=== PATIENT | female | born 1975 | race Caucasian/White ===

== ENCOUNTER 2020-05-02 10:36 | Emergency (ER) | payer OTHER ==
[2020-05-02 10:40] VITALS: BP 145/90; PULSE 81; TEMP 97.5; BMI 35.3
[2020-05-02 12:20] LABS: BASO % 1.9 % (0-2.0); EOS % 0.5 % (0-4.5); EPI CELLS 30 /uL (0-25.1); HEMATOCRIT 41.9 % (32.4-45.2); HEMOGLOBIN 14.4 GM/dL (10.7-15.3); HYALINE CASTS 1 /uL (0-3.1); LYMPH % 31.7 % (8-40); MCH 34.3 pg (25.7-33.7); MCHC 34.5 g/dl (32.0-36.0); MEAN CELL VOLUME 99.6 fl (80-96); MEAN PLT VOLUME 8.6 fl (7.5-11.1); MONO % 7.3 % (3.8-10.2); NEUT % 58.6 % (42.8-82.8); PLATELET COUNT 311 K/MM3 (134-434); RBC 4.21 M/mm3 (3.60-5.2); RDW 13.6 % (11.6-15.6); URINE APPEARANCE CLEAR; URINE BACTERIA 754 /uL (0-1359); URINE BILIRUBIN NEGATIVE (NEGATIVE); URINE COLOR YELLOW; URINE GLUCOSE (UA) NEGATIVE (NEGATIVE); URINE KETONE NEGATIVE (NEGATIVE); URINE LEUK ESTERASE TRACE (NEGATIVE); URINE NITRITE NEGATIVE (NEGATIVE); URINE PROTEIN NEGATIVE (NEGATIVE); URINE UROBILINOGEN 0.2 mg/dL (0.2-1.0); URINE WBC 28 /uL (0-25.8); WHITE BLOOD COUNT 8.7 K/mm3 (4.0-10.0)
[2020-05-02 12:51] LABS: POTASSIUM 4.1 mmol/L (3.5-5.1)
[2020-05-02 12:54] LABS: CALCIUM 9.2 mg/dL (8.5-10.1)
[2020-05-02 12:56] LABS: ALBUMIN 4.1 g/dl (3.4-5.0); BLOOD UREA NITROGEN 16.2 mg/dL (7-18)
[2020-05-02 12:58] LABS: BILIRUBIN,TOTAL 0.6 mg/dL (0.2-1); CREATININE 0.9 mg/dL (0.55-1.3)
[2020-05-02 13:00] LABS: TOT PROT 8.6 g/dl (6.4-8.2)
[2020-05-02 13:08] LABS: URINE RBC 26 /uL (0-23.9)
== END 2020-05-02 13:16 | disposition home or self-care (01) ==
LOC: JERFT 10:36
DX: B35.6 Tinea cruris (principal); R10.31 Right lower quadrant pain
CPT/HCPCS: 36415; 73523-TC-FY; 80053; 81003; 85025; 87086; 99284-25

== ENCOUNTER 2020-11-01 03:14 | Emergency (ER) | payer OTHER ==
[2020-11-01 03:28] VITALS: BP 136/80; PULSE 77; TEMP 97.8; BMI 39.4
[2020-11-01] MEDS ORDERED: DEXAMETHASONE SOD PHOSPHATE 4 MG/1 ML VIAL IVPUSH ONE (03:54)
[2020-11-01] MEDS ORDERED: ACETAMINOPHEN 325 MG TABLET (FP) PO ONE (03:54)
[2020-11-01] MEDS ORDERED: DEXAMETHASONE SOD PHOSPHATE 10 MG/1 ML VIAL ONE (04:12)
[2020-11-01] MEDS ORDERED: ACETAMINOPHEN 325 MG TABLET (FP) ONE (04:12)
[2020-11-01] MEDS ORDERED: ACETAMINOPHEN INJECTION 100 ML IVPB ONE (04:26)
[2020-11-01 04:33] LABS: BASO % 1.8 % (0-2.0); EOS % 0.7 % (0-4.5); HEMATOCRIT 41.3 % (32.4-45.2); HEMOGLOBIN 14.2 GM/dL (10.7-15.3); LYMPH % 34.7 % (8-40); MCH 33.7 pg (25.7-33.7); MCHC 34.4 g/dl (32.0-36.0); MEAN CELL VOLUME 97.9 fl (80-96); MEAN PLT VOLUME 8.2 fl (7.5-11.1); MONO % 7.7 % (3.8-10.2); NEUT % 55.1 % (42.8-82.8); PLATELET COUNT 343 10^3/uL (134-434); RBC 4.22 M/mm3 (3.60-5.2); RDW 14.3 % (11.6-15.6); WHITE BLOOD COUNT 11.9 K/mm3 (4.0-10.0)
[2020-11-01] MEDS ORDERED: CLINDAMYCIN 600MG PREMIX IVPB 600 MG/50 ML BAG IVPB ONE ×2 (04:33→04:49)
[2020-11-01] MEDS ORDERED: ACETAMINOPHEN 1000 MG/100 ML VIAL (NON FORMULARY) IVPB ONE (04:48)
[2020-11-01 04:53] LABS: BLOOD UREA NITROGEN 12.1 mg/dL (7-18); CALCIUM 9.2 mg/dL (8.5-10.1)
[2020-11-01 04:56] LABS: CREATININE 0.9 mg/dL (0.55-1.3)
[2020-11-01 04:58] LABS: BILIRUBIN,TOTAL 0.4 mg/dL (0.2-1); TOT PROT 8.5 g/dl (6.4-8.2)
== END 2020-11-01 07:26 | disposition home or self-care (01) ==
LOC: JER 03:14
PROC: 3E033GC Introduction of Other Therapeutic Substance into Peripheral Vein, Percutaneous Approach (ICD-10-PCS; principal; 2020-11-01)
DX: R22.0 Localized swelling, mass and lump, head (principal); K02.9 Dental caries, unspecified
CPT/HCPCS: 36415; 70487-TC; 70491-TC; 80053; 85025; 99285-25; J0131

== ENCOUNTER 2021-10-25 18:17 | Emergency (ER) | payer OTHER ==
[2021-10-25 18:24] VITALS: BP 157/83; PULSE 112; RESP 20; TEMP 99.6; BMI 36.7
[2021-10-25] MEDS ORDERED: KETOROLAC TROMETHAMINE 30 MG/1 ML VIAL IVPUSH ONE (20:10)
[2021-10-25] MEDS ORDERED: KETOROLAC TROMETHAMINE 30 MG/1 ML VIAL ONE (20:17)
[2021-10-25 20:24] LABS: BASO % 0.6 % (0-2.0); EOS % 0.2 % (0-4.5); HEMATOCRIT 41.4 % (32.4-45.2); HEMOGLOBIN 14.1 GM/dL (10.7-15.3); MCH 33.3 pg (25.7-33.7); MCHC 34.1 g/dl (32.0-36.0); MEAN CELL VOLUME 97.7 fl (80-96); MEAN PLT VOLUME 8.7 fl (7.5-11.1); MONO % 5.7 % (3.8-10.2); NEUT % 74.5 % (42.8-82.8); PLATELET COUNT 346 10^3/uL (134-434); RBC 4.24 M/mm3 (3.60-5.2); RDW 14.3 % (11.6-15.6); WHITE BLOOD COUNT 18.2 K/mm3 (4.0-10.0)
[2021-10-25 20:46] LABS: ALBUMIN 4.3 g/dl (3.4-5.0); CALCIUM 9.3 mg/dL (8.5-10.1)
[2021-10-25 20:47] LABS: BLOOD UREA NITROGEN 15.6 mg/dL (7-18)
[2021-10-25 20:49] LABS: URIC ACID 8.2 mg/dL (2.6-7.2)
[2021-10-25 20:51] LABS: BILIRUBIN,TOTAL 0.2 mg/dL (0.2-1); TOT PROT 8.5 g/dl (6.4-8.2)
[2021-10-25] MEDS ORDERED: AMPICILLIN NA/SULBACTAM NA 3 GM in SODIUM CHLORIDE 100 ML IVPB ONE (21:44)
== END 2021-10-25 23:11 | disposition home or self-care (01) ==
LOC: JER 18:17
PROC: 3E03329 Introduction of Other Anti-infective into Peripheral Vein, Percutaneous Approach (ICD-10-PCS; principal; 2021-10-25)
PROC: 3E0333Z Introduction of Anti-inflammatory into Peripheral Vein, Percutaneous Approach (ICD-10-PCS; 2021-10-25)
DX: L03.116 Cellulitis of left lower limb (principal)
CPT/HCPCS: 36415; 73630-TC-LT; 80053; 84443; 84550; 85025; 87040; 99284-25

== ENCOUNTER 2021-11-05 08:15 | Emergency (ER) | payer OTHER ==
[2021-11-05 08:21] VITALS: BP 169/83; PULSE 77; RESP 18; TEMP 97.7; BMI 36.3
[2021-11-05] MEDS ORDERED: KETOROLAC TROMETHAMINE 60 MG/2 ML VIAL IM ONE (08:50)
[2021-11-05] MEDS ORDERED: ACETAMINOPHEN 325 MG TABLET (FP) PO ONE (08:50)
[2021-11-05] MEDS ORDERED: METHOCARBAMOL 500 MG TABLET PO ONE (08:51)
[2021-11-05] MEDS ORDERED: ACETAMINOPHEN 325 MG TABLET (FP) ONE (08:52)
[2021-11-05] MEDS ORDERED: KETOROLAC TROMETHAMINE 30 MG/1 ML VIAL ONE (08:52)
[2021-11-05] MEDS ORDERED: METHOCARBAMOL 500 MG TABLET ONE (08:52)
== END 2021-11-05 11:44 | disposition home or self-care (01) ==
LOC: JER 08:15 → JERFT 08:15
PROC: 3E0233Z Introduction of Anti-inflammatory into Muscle, Percutaneous Approach (ICD-10-PCS; principal; 2021-11-05)
DX: M54.2 Cervicalgia (principal)
CPT/HCPCS: 72040-TC; 99284-25